=== PATIENT | male | born 1970 | race Caucasian/White ===

== ENCOUNTER 2022-11-05 21:29 | Emergency (ER) | payer MEDICAID ==
--- NOTE | 2022-11-05 23:00 | NUR ---
PATIENT WAS JUST CALLED AT THIS TIME DUE TO EMERGENCY TAKING PLACE IN THE ER AND CCU, BUT PATIENT WAS NOT PRESENT IN THE WAITING ROOM OR OUTSIDE OF ER.
--- NOTE | 2022-11-05 23:30 | NUR ---
Patient was called to be traiged but was not present in the waiting room or outside of ER.
--- NOTE | 2022-11-06 00:03 | NUR ---
Patient was called to be traiged but was not present in the waiting room or outside of ER. PATIENT WAS NOT TRIAGED OR SEEN BY ERMD.
== END 2022-11-06 00:04 | disposition left against medical advice (07) ==
LOC: ER 21:29
DX: Z53.21 Procedure and treatment not carried out due to patient leaving prior to being seen by health care provider (principal)